=== PATIENT | male | born 1955 | race American Indian/Alaskan Native ===

== ENCOUNTER 2018-05-12 13:32 | Inpatient (IN) | payer MEDICARE ==
[2018-05-12] MEDS ORDERED: NACL 0.9% 1000 ML 1,000 ML ONE (14:04)
[2018-05-12] MEDS ORDERED: NACL 0.9% 1000 ML 1,000 ML IV ONE ×2 (14:07→15:05)
--- NOTE | 2018-05-12 14:13 | Emergency Department Report ---
ED General Adult HPI - General Chief complaint: Hyperglycemia Stated complaint: HYPERGLYCEMIA Time Seen by Provider: 05/12/18 13:53 Source: patient, family, EMS Mode of arrival: Stretcher Limitations: No Limitations - History of Present Illness Initial comments: 62-year-old male with history of diabetes, noncompliant with insulin, presents to ED with elevated glucose. He reports nausea and vomiting, increased thirst over the last 3 days. Accucheck reads HIGH [facility] -[facility] days([facility] (3) Severity scale (0 -10): 0 Improves with: none Worsens with: none Associated Symptoms: nausea/vomiting Treatments Prior to Arrival: none - Related Data Previous Rx's Medication Instructions Recorded Last Taken Type Famotidine [Pepcid] 20 mg PO BID #30 tablet 07/01/15 Unknown Rx Folic Acid 1 tab PO QDAY #30 tab 07/01/15 Unknown Rx Pot Phosphate/Na Phosphate 1 each PO BID #20 powd.pack 07/01/15 Unknown Rx [Phos-Nak] Thiamine [Vitamin B-1] 100 mg PO QDAY #30 tablet 07/01/15 Unknown Rx oxyCODONE /ACETAMINOPHEN [Percocet 1 tab PO Q6HR PRN #20 tablet 07/01/15 Unknown Rx 5/325] Allergies Allergy/AdvReac Type Severity Reaction Status Date / Time No Known Allergies Allergy Unverified 06/27/15 12:58 ED Review of Systems ROS: Stated complaint: HYPERGLYCEMIA Other details as noted in HPI Comment: All other systems reviewed and negative Constitutional: denies: chills, fever Respiratory: denies: cough Endocrine: increased thirst, increased urine Gastrointestinal: nausea, vomiting. denies: abdominal pain, diarrhea ED Past Medical Hx - Past Medical History Hx Hypertension: Yes Hx CVA: Yes Hx Heart Attack/AMI: Yes Hx Diabetes: Yes - Surgical History Additional Surgical History: RIGHT HIP REPLACEMENT X 3 - Social History Smoking Status: Current Every Day Smoker Substance Use Type: Alcohol - Medications Home Medications: Home Medications Medication Instructions Recorded Confirmed Last Taken Type Famotidine [Pepcid] 20 mg PO BID #30 tablet 07/01/15 Unknown Rx Folic Acid 1 tab PO QDAY #30 tab 07/01/15 Unknown Rx Pot Phosphate/Na Phosphate 1 each PO BID #20 powd.pack 07/01/15 Unknown Rx [Phos-Nak] Thiamine [Vitamin B-1] 100 mg PO QDAY #30 tablet 07/01/15 Unknown Rx oxyCODONE /ACETAMINOPHEN [Percocet 1 tab PO Q6HR PRN #20 tablet 07/01/15 Unknown Rx 5/325] ED Physical Exam - General Limitations: No Limitations General appearance: alert, in no apparent distress - Head Head exam: Present: atraumatic, normocephalic - Eye Eye exam: Present: normal appearance - ENT ENT exam: Present: mucous membranes dry - Neck Neck exam: Present: normal inspection - Respiratory Respiratory exam: Present: normal lung sounds bilaterally. Absent: respiratory distress - Cardiovascular Cardiovascular Exam: Present: regular rate, normal rhythm - GI/Abdominal GI/Abdominal exam: Present: soft. Absent: distended, tenderness - Extremities Exam Extremities exam: Present: normal inspection - Neurological Exam Neurological exam: Present: alert, oriented X3 - Psychiatric Psychiatric exam: Present: normal affect, normal mood - Skin Skin exam: Present: warm, dry, intact, normal color. Absent: rash ED Course Vital Signs 05/12/18 05/12/18 05/12/18 13:45 15:00 15:11 Temperature 98.3 F Pulse Rate 73 70 Respiratory 24 20 24 Rate Blood Pressure 130/75 131/57 [Right] O2 Sat by Pulse 99 99 Oximetry ED Medical Decision Making - Lab Data Result diagrams: 05/12/18 14:25 05/12/18 15:49 - Medical Decision Making 62-year-old male presents to ED and DKA. Patient noncompliant with insulin. Glucose resulted at 677, with bicarbonate of 12, anion gap of 38, in moderate serum ketones. Patient is started on an insulin drip. Spoke with hospitalist, Dr. Thomas, for admission. - Differential Diagnosis DKA, hyperglycemia Critical Care Time: Yes Critical care time in (mins) excluding proc time.: 35 Critical care attestation.: If time is entered above; I have spent that time in minutes in the direct care of this critically ill patient, excluding procedure time. Critical Care Time: 35 minutes ED Disposition Clinical Impression: DKA (diabetic ketoacidosis) Qualifiers: Diabetes mellitus type: type 1 Disposition: OP ADMIT IP TO THIS HOSP Is pt being admited?: Yes Condition: Critical Time of Disposition: 15:14
[2018-05-12 14:47] LABS: Basophils % (Auto) 0.1 % (0.0-1.8); Hematocrit 31.2 % (35.5-45.6); Hemoglobin 10.2 gm/dl (11.8-15.2); Lymphocytes # (Auto) 0.8 K/mm3 (1.2-5.4); Lymphocytes % (Auto) 7.8 % (13.4-35.0); Mean Corpuscular HGB Conc 33 % (32-34); Mean Corpuscular Volume 85 fl (84-94); Monocytes # (Auto) 0.6 K/mm3 (0.0-0.8); Monocytes % (Auto) 5.3 % (0.0-7.3); Platelet Count 354 K/mm3 (140-440); Red Blood Count 3.67 M/mm3 (3.65-5.03); Red Cell Distribution Width 18.3 % (13.2-15.2)
[2018-05-12 15:00] LABS: Calcium 8.1 mg/dL (8.4-10.2)
[2018-05-12] MEDS ORDERED: HumuLIN R IV ONE (15:05)
[2018-05-12] MEDS ORDERED: D50W (25GM) Syringe IV PRN ×2 (15:12→15:48)
--- NOTE | 2018-05-12 15:36 | History and Physical Report ---
History of Present Illness Chief complaint: High blood sugar History of present illness: 62 YO Male with DM, HTN, CVA, [place], Noncompliance, ETOH Dependence, Nicotine Dependence presents to ED for evaluation. Pt is confused at time of exam and unable to provide history. Pt history is taken from ED staff and medical record. As per staff, the patient has experienced elevated serum glucose levels over the past 1 week, as well as nausea, multiple episodes of vomiting, vomiting, increased thirst, and increased confusion with worsening symptoms over the last 3 days. EMS notified and upon arrival the patient was found to be in distress. Pt transported to [facility]. Pt seen and evaluated in ED and found to have DKA, Acidosis, ARF, Encephalopathy, and Volume depletion. Pt admitted to ICU and initiated on DKA protocol. No further history obtainable. Past History Past Medical History: acute [place], diabetes, hypertension, stroke Past Surgical History: total hip replacement Social history: smoking, alcohol abuse Family history: diabetes, hypertension Medications and Allergies Allergies Allergy/AdvReac Type Severity Reaction Status Date / Time No Known Allergies Allergy Unverified 06/27/15 12:58 Home Medications Medication Instructions Recorded Confirmed Last Taken Type Famotidine [Pepcid] 20 mg PO BID #30 tablet 07/01/15 Unknown Rx Folic Acid 1 tab PO QDAY #30 tab 07/01/15 Unknown Rx Pot Phosphate/Na Phosphate 1 each PO BID #20 powd.pack 07/01/15 Unknown Rx [Phos-Nak] Thiamine [Vitamin B-1] 100 mg PO QDAY #30 tablet 07/01/15 Unknown Rx oxyCODONE /ACETAMINOPHEN [Percocet 1 tab PO Q6HR PRN #20 tablet 07/01/15 Unknown Rx 5/325] Active Meds: Active Medications Dextrose (D50w (25gm) Syringe) 0 ml IV PRN PRN PRN Reason: Hypoglycemia Sodium Chloride (Nacl 0.9% 1000 Ml) 1,000 mls @ 999 mls/hr IV BOLUS ONE Stop: 05/12/18 16:05 Potassium Chloride/Dextrose/Sod Cl (D5w/0.45% Nacl/Kcl 20 Meq) 20 meq in 1,000 mls @ 125 mls/hr IV DIRECT JOHANA Insulin Human Regular 100 (units/ Sodium Chloride) 100 mls @ 7 mls/hr IV TITR JOHANA; Protocol Review of Systems ROS unobtainable: due to mental status Exam - Constitutional Vitals: Temp Pulse Resp BP Pulse Ox 98.3 F 73 24 130/75 99 05/12/18 13:45 05/12/18 13:45 05/12/18 15:11 05/12/18 13:45 05/12/18 13:45 General appearance: Present: severe distress, cachectic, disheveled - EENT Eyes: Present: miosis ENT: other (Dry oral mucosa) - Neck Neck: Present: supple, normal ROM - Respiratory Respiratory effort: normal Respiratory: bilateral: CTA - Cardiovascular Rhythm: other (tachycardia) Heart Sounds: Present: S1 & S2. Absent: rub, click - Extremities Extremities: pulses symmetrical, No edema Peripheral Pulses: within normal limits - Abdominal General gastrointestinal: Present: soft, non-tender, non-distended, normal bowel sounds Male genitourinary: Present: normal - Integumentary Integumentary: Present: clear, dry, clammy, decreased turgor - Musculoskeletal Musculoskeletal: generalized weakness - Psychiatric Psychiatric: no appropriate mood/affect, no intact judgment & insight, no memory intact - Neurologic Neurologic: no focal deficits, moves all extremities, no gait normal Results - Labs CBC & Chem 7: 05/12/18 14:25 05/12/18 15:49 Labs: Abnormal lab results 05/12/18 05/12/18 Range/Units 14:25 14:25 Hgb 10.2 L (11.8-15.2) gm/dl Hct 31.2 L (35.5-45.6) % RDW 18.3 H (13.2-15.2) % Lymph % (Auto) 7.8 L (13.4-35.0) % Lymph # 0.8 L (1.2-5.4) K/mm3 Seg Neutrophils % 86.8 H (40.0-70.0) % Seg Neutrophils # 9.3 H (1.8-7.7) K/mm3 Carbon Dioxide 12 L (22-30) mmol/L BUN 48 H (9-20) mg/dL Creatinine 1.8 H (0.8-1.5) mg/dL Glucose 677 H* (75-100) mg/dL Calcium 8.1 L (8.4-10.2) mg/dL Assessment and Plan - Patient Problems (1) DKA (diabetic ketoacidosis) Current Visit: Yes Status: Acute Qualifiers: Diabetes mellitus type: type 1 Plan to address problem: Admit to ICU, DKA Protocol: IVF resuscitation therapy, monitor uop q shift, serial bmp, insulin drip, monitor anion gap, IV bicarbonate therapy, The high probability of a clinically significant, sudden or life threatening de terioration of the [Endocrine, neuro, respiratory,renal] system(s) required my full and direct attention, intervention and personal management. The aggregate critical care time was [65] minutes. This time is in addition to time spent performing reported procedures but includes the following: [x] Data Review and interpretation [x] Patient assessment and monitoring of vital signs [x] Documentation [x] Medication orders and management (2) Encephalopathy Current Visit: Yes Status: Acute Plan to address problem: CT head, neuro check, neuro checks, treat dka, (3) ARF (acute renal failure) with tubular necrosis Current Visit: Yes Status: Acute Plan to address problem: IVF resuscitation therapy, monitor uop q shift, serial bmp, monitor serum creatnine, (4) Alcohol dependence Current Visit: Yes Status: Acute Qualifiers: Complication of substance-induced condition: with unspecified complication Plan to address problem: CIWA protocol, Blood alcohol, Banana bag, thiamine, folic acid, multivitamin, (5) Acidosis Current Visit: Yes Status: Acute Plan to address problem: IVF resuscitation therapy, treat DKA, monitor uop q shift, IV bicarbonate therapy, serial bmp (6) Hypernatremia Current Visit: Yes Status: Acute Plan to address problem: IVF resuscitation therapy, monitor uop q shift, serial bmp, (7) DVT prophylaxis Current Visit: Yes Status: Acute Plan to address problem: SCD to BLE while in bed
[2018-05-12] MEDS ORDERED: PROVENTIL IH PRN (15:44)
[2018-05-12] MEDS ORDERED: SODIUM CHLORIDE FLUSH SYRINGE 10 ML IV PRN (15:44)
[2018-05-12] MEDS ORDERED: PERCOCET 5/325 PO PRN (15:46)
[2018-05-12 15:49] LABS: Bilirubin,Urine NEG (Negative); Blood,Urine SM (Negative); Color,Urine Straw (Yellow); Mucus,Urine FEW /HPF; Protein,Urine <15 mg/dL mg/dL (Negative); RBC,Urine < 1.0 /HPF (0.0-6.0); Urobilinogen,Urine < 2.0 mg/dL (<2.0); WBC,Urine < 1.0 /HPF (0.0-6.0)
[2018-05-12] MEDS ORDERED: HumuLIN R 100 UNITS in NACL 0.9% 99 ML IV SCH (16:00)
[2018-05-12 16:01] LABS: Calcium 8.2 mg/dL (8.4-10.2)
[2018-05-12] MEDS: HumuLIN R 100 UNITS in NACL 0.9% 99 ML IV SCH (16:03)
[2018-05-12 16:19] LABS: Calcium 7.8 mg/dL (8.4-10.2)
[2018-05-12 17:46] LABS: Alanine Aminotransferase 5 units/L (7-56)
[2018-05-12 17:47] LABS: Bilirubin,Direct < 0.2 mg/dL (0-0.2)
[2018-05-12] MEDS ORDERED: PEPCID ONE (18:45)
[2018-05-12] MEDS: PEPCID PO SCH (19:20)
[2018-05-12] MEDS ORDERED: SODIUM BICARBONATE PEDIATRIC ONE (19:20)
[2018-05-12] MEDS ORDERED: SODIUM BICARBONATE IV ONE (20:00)
[2018-05-12] MEDS ORDERED: PEPCID PO SCH (22:00)
[2018-05-12] MEDS: D5W/0.45% NACL/KCL 20 MEQ 20 MEQ/1,000 ML BAG IV SCH (22:00)
[2018-05-12] MEDS ORDERED: PHOS-NAK PO SCH (22:00)
[2018-05-12 22:23] LABS: Calcium 8.2 mg/dL (8.4-10.2)
[2018-05-12] MEDS: SODIUM CHLORIDE FLUSH SYRINGE 10 ML IV SCH (22:29)
[2018-05-12 23:13] LABS: BUN/Creatinine Ratio 30; Blood Urea Nitrogen 42 mg/dL (9-20); Calcium 8.4 mg/dL (8.4-10.2); Hemolysis Index 14
[2018-05-13] MEDS: HABITROL TD SCH ×2 (01:14→09:06)
[2018-05-13] MEDS: D5W/0.45% NACL/KCL 20 MEQ 20 MEQ/1,000 ML BAG IV SCH ×2 (04:27→11:56)
[2018-05-13] MEDS: HumuLIN R 100 UNITS in NACL 0.9% 99 ML IV SCH (06:13)
[2018-05-13 07:39] LABS: BUN/Creatinine Ratio 34; Blood Urea Nitrogen 34 mg/dL (9-20); Calcium 8.2 mg/dL (8.4-10.2); Hemolysis Index 11
[2018-05-13] MEDS ORDERED: D50W (25GM) Syringe IV PRN (08:39)
[2018-05-13] MEDS ORDERED: K-DUR PO ONE (09:00)
[2018-05-13] MEDS: FOLVITE PO SCH (09:03)
[2018-05-13] MEDS: VITAMIN B-1 PO SCH (09:03)
[2018-05-13] MEDS: PEPCID PO SCH (09:04)
[2018-05-13] MEDS: SODIUM CHLORIDE FLUSH SYRINGE 10 ML IV SCH ×2 (09:05→21:58)
[2018-05-13] MEDS ORDERED: LANTUS SUB-Q ONE (09:30)
[2018-05-13] MEDS ORDERED: NON-FORMULARY (Folic Acid [Folic Acid] 1 TAB) PO SCH (10:00)
--- NOTE | 2018-05-13 11:10 | Consultation ---
History of Present Illness - Reason for Consult Consult date: 05/13/18 DKA Requesting physician: PETER LEYVA - History of Present Illness 62 y/o male admitted with DKA and AMS. Patient has been admitted before with DKA diagnosis. Last time in ICU was for this and I saw him then. Still somewhat altered/agitated but has been given narcotics so is now asleep. Anion Gap has closed and has been given long acting insulin. Past History Past Medical History: acute [place], diabetes, hypertension, stroke Past Surgical History: total hip replacement Social history: smoking, alcohol abuse Family history: diabetes, hypertension Medications and Allergies Allergies Allergy/AdvReac Type Severity Reaction Status Date / Time No Known Allergies Allergy Unverified 06/27/15 12:58 Home Medications Medication Instructions Recorded Confirmed Last Taken Type Famotidine [Pepcid] 20 mg PO BID #30 tablet 07/01/15 Unknown Rx Folic Acid 1 tab PO QDAY #30 tab 07/01/15 Unknown Rx Pot Phosphate/Na Phosphate 1 each PO BID #20 powd.pack 07/01/15 Unknown Rx [Phos-Nak] Thiamine [Vitamin B-1] 100 mg PO QDAY #30 tablet 07/01/15 Unknown Rx oxyCODONE /ACETAMINOPHEN [Percocet 1 tab PO Q6HR PRN #20 tablet 07/01/15 Unknown Rx 5/325] Active Meds: Active Medications Albuterol (Proventil) 2.5 mg IH Q3HRT PRN PRN Reason: Shortness Of Breath Dextrose (D50w (25gm) Syringe) 0 ml IV PRN PRN PRN Reason: Hypoglycemia Famotidine (Pepcid) 20 mg PO QDAY [facility] Last Admin: 05/13/18 09:04 Dose: 20 mg Documented by: Folic Acid (Folvite) 1 mg PO DAILY JOHANA Last Admin: 05/13/18 09:03 Dose: 1 mg Documented by: Potassium Chloride/Dextrose/Sod Cl (D5w/0.45% Nacl/Kcl 20 Meq) 20 meq in 1,000 mls @ 125 mls/hr IV DIRECT JOHANA Last Admin: 05/13/18 04:27 Dose: 125 mls/hr Documented by: Insulin Glargine (Lantus) 18 units SUB-Q QHS JOHANA Insulin Human Lispro (Humalog) 0 unit SUB-Q ACHS JOHANA; Protocol Nicotine (Habitrol) 21 mg TD QDAY JOHANA Last Admin: 05/13/18 09:06 Dose: 21 mg Documented by: Oxycodone/Acetaminophen (Percocet 5/325) 1 tab PO Q6HR PRN PRN Reason: Pain Last Admin: 05/13/18 09:05 Dose: 1 tab Documented by: Sodium Chloride (Sodium Chloride Flush Syringe 10 Ml) 10 ml IV BID [facility] Last Admin: 05/13/18 09:05 Dose: 10 ml Documented by: Sodium Chloride (Sodium Chloride Flush Syringe 10 Ml) 10 ml IV PRN PRN PRN Reason: LINE FLUSH Thiamine HCl (Vitamin B-1) 100 mg PO QDAY [facility] Last Admin: 05/13/18 09:03 Dose: 100 mg Documented by: Review of Systems ROS unobtainable: due to mental status Exam - Constitutional Vitals: Temp Pulse Resp BP Pulse Ox 98.4 F 66 13 134/80 99 05/13/18 03:26 05/13/18 04:41 05/13/18 08:00 05/13/18 04:41 05/13/18 08:00 General appearance: Present: no acute distress, cachectic - EENT Eyes: Present: PERRL, EOM intact ENT: hearing intact - Neck Neck: Present: supple - Respiratory Respiratory effort: normal Respiratory: bilateral: CTA - Cardiovascular Rhythm: regular Results - Labs CBC & Chem 7: 05/12/18 14:25 05/13/18 07:00 Labs: Abnormal lab results 05/12/18 05/12/18 05/12/18 Range/Units 14:25 14:25 15:17 Hgb 10.2 L (11.8-15.2) gm/dl Hct 31.2 L (35.5-45.6) % RDW 18.3 H (13.2-15.2) % Lymph % (Auto) 7.8 L (13.4-35.0) % Lymph # 0.8 L (1.2-5.4) K/mm3 Seg Neutrophils % 86.8 H (40.0-70.0) % Seg Neutrophils # 9.3 H (1.8-7.7) K/mm3 Sodium (137-145) mmol/L Potassium (3.6-5.0) mmol/L Chloride (98-107) mmol/L Carbon Dioxide 12 L (22-30) mmol/L BUN 48 H (9-20) mg/dL Creatinine 1.8 H (0.8-1.5) mg/dL Glucose 677 H* (75-100) mg/dL Calcium 8.1 L (8.4-10.2) mg/dL Phosphorus 4.90 H (2.5-4.5) mg/dL Magnesium 2.50 H (1.7-2.3) mg/dL ALT (7-56) units/L Albumin (3.9-5) g/dL 05/12/18 05/12/18 05/12/18 Range/Units 15:17 15:49 17:09 Hgb (11.8-15.2) gm/dl Hct (35.5-45.6) % RDW (13.2-15.2) % Lymph % (Auto) (13.4-35.0) % Lymph # (1.2-5.4) K/mm3 Seg Neutrophils % (40.0-70.0) % Seg Neutrophils # (1.8-7.7) K/mm3 Sodium 148 H 148 H (137-145) mmol/L Potassium (3.6-5.0) mmol/L Chloride 96.7 L (98-107) mmol/L Carbon Dioxide 11 L 11 L (22-30) mmol/L BUN 49 H 46 H (9-20) mg/dL Creatinine 1.9 H 1.8 H (0.8-1.5) mg/dL Glucose 672 H* 644 H* (75-100) mg/dL Calcium 8.2 L 7.8 L (8.4-10.2) mg/dL Phosphorus 4.80 H (2.5-4.5) mg/dL Magnesium 2.40 H (1.7-2.3) mg/dL ALT 5 L (7-56) units/L Albumin 3.0 L (3.9-5) g/dL 05/12/18 05/12/18 05/13/18 Range/Units 21:47 22:51 07:00 Hgb (11.8-15.2) gm/dl Hct (35.5-45.6) % RDW (13.2-15.2) % Lymph % (Auto) (13.4-35.0) % Lymph # (1.2-5.4) K/mm3 Seg Neutrophils % (40.0-70.0) % Seg Neutrophils # (1.8-7.7) K/mm3 Sodium 153 H 154 H 161 H* (137-145) mmol/L Potassium 3.3 L 2.9 L* 2.9 L* (3.6-5.0) mmol/L Chloride 110.3 H 111.7 H 118.8 H (98-107) mmol/L Carbon Dioxide (22-30) mmol/L BUN 43 H 42 H 34 H (9-20) mg/dL Creatinine (0.8-1.5) mg/dL Glucose 363 H 322 H 128 H (75-100) mg/dL Calcium 8.2 L 8.2 L (8.4-10.2) mg/dL Phosphorus (2.5-4.5) mg/dL Magnesium (1.7-2.3) mg/dL ALT (7-56) units/L Albumin (3.9-5) g/dL Assessment and Plan 62 y/o male with diabetic ketoacidosis, hypernatremia and hypokalemia. 1. Anion Gap has closed. Agree with stopping Insulin gtt and starting long acting insulin as well as feeding patient 2. May need to consider rechecking chemistry to evaluate Na. Patient was on normal saline on admission but now switched to D5. Labs may have been drawn down stream from infusion. If real, may be worsening mental state and should be worked up. Will defer to primary team 3. Agree with replacing K 4. Transfer orders placed by IMS, will sign off once out of unit. CCT 31 minutes.
[2018-05-13 11:15] LABS: BUN/Creatinine Ratio 33; Blood Urea Nitrogen 33 mg/dL (9-20); Calcium 8.1 mg/dL (8.4-10.2); Hemolysis Index 13
[2018-05-13] MEDS ORDERED: ATIVAN PO PRN ×2 (11:50)
[2018-05-13] MEDS: HumaLOG SUB-Q SCH ×3 (11:58→22:54)
[2018-05-13] MEDS ORDERED: NACL 0.9% 1000 ML 1,000 ML IV SCH (12:00)
[2018-05-13] MEDS ORDERED: K-DUR PO NR (14:23)
--- NOTE | 2018-05-13 14:23 | Progress Note ---
Assessment and Plan Assessment and plan: DKA - Patient was treated according to DK protocol, gap closed Diabetes mellitus with hyperglycemia - Sliding-scale insulin, started his home dose of insulin, ADA diet, Accu-Chek - We'll monitor and adjust insulin as needed Hypernatremia - Patient is on D5 half-normal - I ordered bolus of 2 L normal saline - Nephrology consulted Hypokalemia - Gave him 40 meq of potassium and 20 units in the bag, despite that it is still low - We will give additional 40 mEq - Check BMP, and magnesium History of alcohol abuse - Patient denied but per chart review as alcoholic - On [facility] protocol DVT prophylaxis SCDs Disposition - Transfer him to medical floor with remote telemetry History Interval history: Patient was seen and evaluated this morning, patient was alert and oriented. Patient is on restraints. Patient is complaining thirst and asking for water. Hospitalist Physical - Physical exam Narrative exam: Not in cardiopulmonary distress. The patient appeared well nourished and normally developed. Vital signs as documented. Head exam is unremarkable. No scleral icterus . Neck is without jugular venous distension, thyromegaly, or carotid bruits. Lungs are clear to auscultation. Cardiac exam reveals regular rate and Rhythm. First and second heart sounds normal. No murmurs, rubs or gallops. Abdominal exam reveals normal bowel sounds, no masses, no organomegaly and no aortic enlargement. Extremities are nonedematous and both femoral and pedal pulses are normal. [employer]: Alert and oriented 3. No focal weakness. - Constitutional Vitals: Temp Pulse Resp BP Pulse Ox 98.4 F 66 18 134/80 98 05/13/18 03:26 05/13/18 04:41 05/13/18 12:00 05/13/18 04:41 05/13/18 12:00 General appearance: Present: no acute distress, cachectic Results - Labs CBC & Chem 7: 05/12/18 14:25 05/13/18 10:37 Labs: Laboratory Last Values WBC 10.7 K/mm3 (4.5-11.0) 05/12/18 14:25 RBC 3.67 M/mm3 (3.65-5.03) 05/12/18 14:25 Hgb 10.2 gm/dl (11.8-15.2) L 05/12/18 14:25 Hct 31.2 % (35.5-45.6) L 05/12/18 14:25 MCV 85 fl (84-94) 05/12/18 14:25 MCH 28 pg (28-32) 05/12/18 14:25 MCHC 33 % (32-34) 05/12/18 14:25 RDW 18.3 % (13.2-15.2) H 05/12/18 14:25 Plt Count 354 K/mm3 (140-440) 05/12/18 14:25 Lymph % (Auto) 7.8 % (13.4-35.0) L 05/12/18 14:25 [place] % (Auto) 5.3 % (0.0-7.3) 05/12/18 14:25 Eos % (Auto) 0.0 % (0.0-4.3) 05/12/18 14:25 Baso % (Auto) 0.1 % (0.0-1.8) 05/12/18 14:25 Lymph # 0.8 K/mm3 (1.2-5.4) L 05/12/18 14:25 [place] # 0.6 K/mm3 (0.0-0.8) 05/12/18 14:25 Eos # 0.0 K/mm3 (0.0-0.4) 05/12/18 14:25 Baso # 0.0 K/mm3 (0.0-0.1) 05/12/18 14:25 Seg Neutrophils % 86.8 % (40.0-70.0) H 05/12/18 14:25 Seg Neutrophils # 9.3 K/mm3 (1.8-7.7) H 05/12/18 14:25 Sodium 164 mmol/L (137-145) H* 05/13/18 10:37 Potassium 3.3 mmol/L (3.6-5.0) L 05/13/18 10:37 Chloride 113.0 mmol/L (98-107) H 05/13/18 10:37 Carbon Dioxide 27 mmol/L (22-30) 05/13/18 10:37 Anion Gap 25 mmol/L 05/13/18 10:37 BUN 33 mg/dL (9-20) H 05/13/18 10:37 Creatinine 1.0 mg/dL (0.8-1.5) 05/13/18 10:37 Estimated GFR > 60 ml/min 05/13/18 10:37 BUN/Creatinine Ratio 33 % 05/13/18 10:37 Glucose 202 mg/dL (75-100) H 05/13/18 10:37 Ketones Quantitative Moderate (Negative) 05/12/18 14:25 Calcium 8.1 mg/dL (8.4-10.2) L 05/13/18 10:37 Phosphorus 4.80 mg/dL (2.5-4.5) H 05/12/18 15:49 Magnesium 2.40 mg/dL (1.7-2.3) H 05/12/18 15:49 Total Bilirubin 0.20 mg/dL (0.1-1.2) 05/12/18 17:09 Direct Bilirubin < 0.2 mg/dL (0-0.2) 05/12/18 17:09 Indirect Bilirubin 0.0 mg/dL 05/12/18 17:09 AST 12 units/L (5-40) 05/12/18 17:09 ALT 5 units/L (7-56) L 05/12/18 17:09 Alkaline Phosphatase 101 units/L (35-129) 05/12/18 17:09 Total Protein 6.6 g/dL (6.3-8.2) 05/12/18 17:09 Albumin 3.0 g/dL (3.9-5) L 05/12/18 17:09 Albumin/Globulin Ratio 0.8 % 05/12/18 17:09 Urine Color Straw (Yellow) 05/12/18 15:35 Urine Turbidity Clear (Clear) 05/12/18 15:35 Urine pH 5.0 (5.0-7.0) 05/12/18 15:35 Ur Specific [place] 1.020 (1.003-1.030) 05/12/18 15:35 Urine Protein <15 mg/dl mg/dL (Negative) 05/12/18 15:35 Urine Glucose (UA) >=500 mg/dL (Negative) 05/12/18 15:35 Urine Ketones 80 mg/dL (Negative) 05/12/18 15:35 Urine Blood Sm (Negative) 05/12/18 15:35 Urine Nitrite Neg (Negative) 05/12/18 15:35 Urine Bilirubin Neg (Negative) 05/12/18 15:35 Urine Urobilinogen < 2.0 mg/dL (<2.0) 05/12/18 15:35 Ur Leukocyte Esterase Neg (Negative) 05/12/18 15:35 Urine WBC (Auto) < 1.0 /HPF (0.0-6.0) 05/12/18 15:35 Urine RBC (Auto) < 1.0 /HPF (0.0-6.0) 05/12/18 15:35 Urine Mucus Few /HPF 05/12/18 15:35 Plasma/Serum Alcohol < 0.01 % (0-0.07) 05/12/18 17:09
--- NOTE | 2018-05-13 14:45 | Consultation ---
History of Present Illness - Reason for Consult Consult date: 05/13/18 hypernatremia, hypokalemia - History of Present Illness The patient is a 62 YO Male with history significant for DM, HTN, CVA, CAD s/p UT, ETOH Dependence, Nicotine Dependence and Medical non-compliance who presented to ED for evaluation of AMS. Pt was a very poor historian and unable to get history from him. The patient has experienced elevated serum glucose levels over the past week, as well as nausea, vomiting, increased thirst, and confusion. Pt seen and evaluated in ED and found to have DKA with blood sugar 6 77, Acidosis, KEELEY with creatinine 1.8, Encephalopathy, and Volume depletion. Pt admitted to ICU for further treatment. Creatinine level has gotten better. Sodium level went upto 164 today. Nephrology was consulted for further evaluation. Past History Past Medical History: acute UT, diabetes, hypertension, stroke Past Surgical History: total hip replacement Social history: smoking, alcohol abuse Family history: diabetes, hypertension Medications and Allergies Allergies Allergy/AdvReac Type Severity Reaction Status Date / Time No Known Allergies Allergy Unverified 06/27/15 12:58 Home Medications Medication Instructions Recorded Confirmed Last Taken Type Famotidine [Pepcid] 20 mg PO BID #30 tablet 07/01/15 Unknown Rx Folic Acid 1 tab PO QDAY #30 tab 07/01/15 Unknown Rx Pot Phosphate/Na Phosphate 1 each PO BID #20 powd.pack 07/01/15 Unknown Rx [Phos-Nak] Thiamine [Vitamin B-1] 100 mg PO QDAY #30 tablet 07/01/15 Unknown Rx oxyCODONE /ACETAMINOPHEN [Percocet 1 tab PO Q6HR PRN #20 tablet 07/01/15 Unknown Rx 5/325] Active Meds: Active Medications Albuterol (Proventil) 2.5 mg IH Q3HRT PRN PRN Reason: Shortness Of Breath Dextrose (D50w (25gm) Syringe) 0 ml IV PRN PRN PRN Reason: Hypoglycemia Enoxaparin Sodium (Lovenox) 40 mg SUB-Q QDAY@2200 J[facility] Famotidine (Pepcid) 20 mg PO QDAY [facility] Last Admin: 05/13/18 09:04 Dose: 20 mg Documented by: Folic Acid (Folvite) 1 mg PO DAILY [facility] Last Admin: 05/13/18 09:03 Dose: 1 mg Documented by: Potassium Chloride/Dextrose/Sod Cl (D5w/0.45% Nacl/Kcl 20 Meq) 20 meq in 1,000 mls @ 125 mls/hr IV DIRECT [facility] Last Admin: 05/13/18 11:56 Dose: 125 mls/hr Documented by: Sodium Chloride (Nacl 0.9% 1000 Ml) 1,000 mls @ 0 mls/hr IV ONCE JOHANA Stop: 05/14/18 12:01 Insulin Glargine (Lantus) 18 units SUB-Q QHS JOHANA Insulin Human Lispro (Humalog) 0 unit SUB-Q ACHS JOHANA; Protocol Last Admin: 05/13/18 11:58 Dose: 6 unit Documented by: Lorazepam (Ativan) 2 mg PO Q1HR PRN PRN Reason: CIWA-Ar 8-15 Lorazepam (Ativan) 4 mg PO Q1HR PRN PRN Reason: CIWA-Ar 16-25 Nicotine (Habitrol) 21 mg TD QDAY [facility] Last Admin: 05/13/18 09:06 Dose: 21 mg Documented by: Oxycodone/Acetaminophen (Percocet 5/325) 1 tab PO Q6HR PRN PRN Reason: Pain Last Admin: 05/13/18 09:05 Dose: 1 tab Documented by: Potassium Chloride (K-Dur) 40 meq PO ONCE NR Stop: 05/13/18 23:59 Sodium Chloride (Sodium Chloride Flush Syringe 10 Ml) 10 ml IV BID [facility] Last Admin: 05/13/18 09:05 Dose: 10 ml Documented by: Sodium Chloride (Sodium Chloride Flush Syringe 10 Ml) 10 ml IV PRN PRN PRN Reason: LINE FLUSH Thiamine HCl (Vitamin B-1) 100 mg PO QDAY [facility] Last Admin: 05/13/18 09:03 Dose: 100 mg Documented by: Review of Systems ROS unobtainable: due to mental status (patient is a very poor historian and some confusion noted) Exam - Vital Signs Vital signs: Vital Signs Temp Pulse Resp BP Pulse Ox 98.3 F 73 24 130/75 99 05/12/18 13:45 05/12/18 13:45 05/12/18 13:45 05/12/18 13:45 05/12/18 13:45 - General Appearance General appearance: well-developed, appears stated age, other (not in distress) EENT: ATNC, PERRL, mucous membranes moist, hearing intact, vision intact Neck: Present: neck supple, trachea midline Respiratory: Clear to Ascultation Heart: regular, S1S2, no murmurs Gastrointestinal: Present: normoactive bowel sounds. Absent: tenderness, distended Integumentary: no rash, warm and dry Neurologic: no focal deficit, no asterixis, other (some what slow in answering the questions) Musculoskeletal: Present: other (no edema) Psychiatric: cooperative Results - Lab Results 05/12/18 14:25 05/13/18 14:17 Most recent lab results Calcium 8.1 mg/dL (8.4-10.2) L 05/13/18 10:37 Phosphorus 4.80 mg/dL (2.5-4.5) H 05/12/18 15:49 Magnesium 2.40 mg/dL (1.7-2.3) H 05/12/18 15:49 Assessment and Plan 1. Hypernatremia: Secondary to volume depletion / dehydration. Change IV fluids to D5W with KCl. Monitor Sodium level. Repeat sodium level is pending. 2. FEN: Replete K. 3. DKA: Improved. 4. H/o Etoh abuse. 5. HTN.
[2018-05-13 14:57] LABS: BUN/Creatinine Ratio 30; Blood Urea Nitrogen 30 mg/dL (9-20); Hemolysis Index 21
--- NOTE | 2018-05-13 15:19 | XRay Report ---
AP CHEST: HISTORY: Altered mental status AP view of the chest demonstrates a normal mediastinal and cardiac contour with clear lungs and normal bony and soft tissue structures. IMPRESSION: No acute cardiopulmonary process is identified.
[2018-05-13 17:09] LABS: BUN/Creatinine Ratio 30; Blood Urea Nitrogen 27 mg/dL (9-20); Hemolysis Index 17
[2018-05-13] MEDS: KCL 40 MEQ in D5W 1,000 ML IV SCH (18:55)
[2018-05-13] MEDS ORDERED: LOVENOX SUB-Q SCH (22:00)
[2018-05-13] MEDS ORDERED: LANTUS SUB-Q SCH (22:00)
[2018-05-14 05:39] LABS: Basophils # (Auto) 0.1 K/mm3 (0.0-0.1); Basophils % (Auto) 0.8 % (0.0-1.8); Eosinophils # (Auto) 0.1 K/mm3 (0.0-0.4); Eosinophils % (Auto) 0.9 % (0.0-4.3); Hematocrit 29.9 % (35.5-45.6); Hemoglobin 10.1 gm/dl (11.8-15.2); Lymphocytes % (Auto) 20.5 % (13.4-35.0); Mean Corpuscular HGB Conc 34 % (32-34); Mean Corpuscular Volume 81 fl (84-94); Monocytes # (Auto) 0.8 K/mm3 (0.0-0.8); Monocytes % (Auto) 8.1 % (0.0-7.3); Platelet Count 311 K/mm3 (140-440); Red Cell Distribution Width 18.1 % (13.2-15.2)
[2018-05-14] MEDS: KCL 40 MEQ in D5W 1,000 ML IV SCH (05:48)
[2018-05-14 06:00] LABS: BUN/Creatinine Ratio 23; Blood Urea Nitrogen 18 mg/dL (9-20); Calcium 7.9 mg/dL (8.4-10.2); Hemolysis Index 19
[2018-05-14] MEDS: HABITROL TD SCH (09:41)
[2018-05-14] MEDS: FOLVITE PO SCH (09:41)
[2018-05-14] MEDS: PEPCID PO SCH (09:41)
[2018-05-14] MEDS: VITAMIN B-1 PO SCH (09:41)
[2018-05-14] MEDS: HumaLOG SUB-Q SCH ×2 (09:42→13:37)
[2018-05-14] MEDS ORDERED: KPHOS 45 MMOL in NACL 0.9% 500 ML 500 ML IV ONE (10:00)
[2018-05-14] MEDS: SODIUM CHLORIDE FLUSH SYRINGE 10 ML IV SCH (10:06)
--- NOTE | 2018-05-14 10:13 | Discharge Summary ---
Providers - Providers Date of Admission: 05/12/18 15:45 Attending physician: ESCOBAR CHIU MD 05/12/18 15:48 Consult to Physician [CONS] Routine Comment: Consulting Provider: QUITA COOPER Physician Instructions: Reason For Exam: DKA 05/13/18 14:25 Consult to Physician [CONS] Routine Comment: Consulting Provider: LUIZ ORELLANA Physician Instructions: Reason For Exam: hypernatremia Primary care physician: COST RECOVERY TECHNICIAN Hospitalization Reason for admission: DKA, medication noncompliance Condition: Stable Hospital course: Patient was admitted to ICU for the management of DKA and electrolyte derangements. patient was treated according to DKA protocol and Gap was closed and patient was transferred to the floor and blood glucose was in target and electrolytes were corrected. patient said he was non complaint with his insulin regimen and was counselled extensively about adherence and discharged home. patient had enough insulin at home. patient was hemodynamically stable at the time of discharge. Disposition: [place]- HOME UNDER HOME [facility] Time spent for discharge: 32 minutes - Discharge Diagnoses (1) Acidosis Status: Acute (2) DKA (diabetic ketoacidosis) Status: Acute Qualifiers: Diabetes mellitus type: type 1 (3) Encephalopathy Status: Acute (4) Hypernatremia Status: Acute (5) Abdominal pain Status: Acute Qualifiers: Abdominal location: upper abdomen (6) Nausea and vomiting Status: Acute Qualifiers: Vomiting type: unspecified Vomiting Intractability: non-intractable Qualified Code(s): R11.2 - Nausea with vomiting, unspecified (7) ARF (acute renal failure) with tubular necrosis Status: Acute Core Measure Documentation - Palliative Care Palliative Care/ Comfort Measures: Not Applicable - Core Measures Any of the following diagnoses?: none Exam - Physical Exam Narrative exam: Not in cardiopulmonary distress. The patient appeared well nourished and normally developed. Vital signs as documented. Head exam is unremarkable. No scleral icterus . Neck is without jugular venous distension, thyromegaly, or carotid bruits. Lungs are clear to auscultation. Cardiac exam reveals regular rate and Rhythm. First and second heart sounds normal. No murmurs, rubs or gallops. Abdominal exam reveals normal bowel sounds, no masses, no organomegaly and no aortic enlargement. Extremities are nonedematous and both femoral and pedal pulses are normal. SENIOR SCRUM MASTER: Alert and oriented 3. No focal weakness. - Constitutional Vitals: Temp Pulse Resp BP Pulse Ox 97.9 F 77 20 99/64 98 05/13/18 22:02 05/13/18 22:02 05/14/18 05:19 05/14/18 05:19 05/13/18 21:26 Plan Activity: no restrictions Weight Bearing Status: Full Weight Bearing Diet: diabetic
--- NOTE | 2018-05-14 10:39 | Progress Note ---
Assessment and Plan 1. Hypernatremia: Secondary to volume depletion / dehydration. Sodium level is better. Monitor Sodium level. Stop D5W. 2. FEN: Replete Phos. 3. DKA: Improved. 4. H/o Etoh abuse. 5. HTN. Subjective Date of service: 05/14/18 Interval history: Patient was seen and examined at the bedside. Objective - Vital Signs Vital signs: Vital Signs - 12hr 05/14/18 05:19 Respiratory 20 Rate Blood Pressure 99/64 - General Appearance General appearance: well-developed, appears stated age, other (not in distress) EENT: ATNC, PERRL, mucous membranes moist, hearing intact Neck: supple Respiratory: Present: Clear to Ascultation Cardiology: regular, S1S2, no murmurs Gastrointestinal: normoactive bowel sounds Integumentary: no rash, warm and dry Neurologic: no focal deficit, no asterixis Musculoskeletal: other (no edema) - Lab 05/14/18 05:19 05/14/18 05:19 Most recent lab results Calcium 7.9 mg/dL (8.4-10.2) L 05/14/18 05:19 Phosphorus 1.00 mg/dL (2.5-4.5) L D 05/14/18 05:19 Magnesium 2.40 mg/dL (1.7-2.3) H 05/12/18 15:49 Medications & Allergies - Medications Allergies/Adverse Reactions: Allergies No Known Allergies Allergy (Unverified 06/27/15 12:58) Home Medications: Home Medications Medication Instructions Recorded Confirmed Last Taken Type Famotidine [Pepcid] 20 mg PO BID #30 tablet 07/01/15 Unknown Rx Folic Acid 1 tab PO QDAY #30 tab 07/01/15 Unknown Rx Pot Phosphate/Na Phosphate 1 each PO BID #20 powd.pack 07/01/15 Unknown Rx [Phos-Nak] Thiamine [Vitamin B-1] 100 mg PO QDAY #30 tablet 07/01/15 Unknown Rx oxyCODONE /ACETAMINOPHEN [Percocet 1 tab PO Q6HR PRN #20 tablet 07/01/15 Unknown Rx 5/325 mg] Insulin Glargine [Lantus VIAL] 18 units SUB-Q QHS units 05/14/18 Unknown Rx Lispro Insulin [Humalog] 0 unit SUB-Q ACHS units 05/14/18 Unknown Rx Nicotine [Habitrol] 21 mg TD QDAY patch 05/14/18 Unknown Rx Active Medications: Generic Name Dose Route Start Last Admin Trade Name Jose PRN Reason Stop Dose Admin Albuterol 2.5 mg 05/12/18 15:44 Proventil IH Q3HRT PRN Shortness Of Breath Dextrose 0 ml 05/12/18 15:48 D50w (25gm) Syringe IV PRN PRN Hypoglycemia Enoxaparin Sodium 40 mg 05/13/18 22:00 05/13/18 21:55 Lovenox SUB-Q 40 mg QDAY@2200 JOHANA Administration Famotidine 20 mg 05/12/18 18:00 05/14/18 09:41 Pepcid PO 20 mg QDAY J[facility] Administration Folic Acid 1 mg 05/13/18 10:00 05/14/18 09:41 Folvite PO 1 mg DAILY [facility] Administration Sodium Chloride 1,000 mls @ 0 mls/hr 05/13/18 12:00 Nacl 0.9% 1000 Ml IV 05/14/18 12:01 ONCE JOHANA As Directed Potassium Chloride 40 meq/ 1,020 mls @ 50 mls/hr 05/13/18 18:30 05/14/18 05:48 Dextrose IV 100 mls/hr DIRECT [facility] Administration Potassium Phosphate 45 mmol/ 515 mls @ 85 mls/hr 05/14/18 10:00 05/14/18 10:22 Sodium Chloride IV 05/14/18 16:03 85 mls/hr ONCE ONE Administration Insulin Glargine 18 units 05/13/18 22:00 05/13/18 22:54 Lantus SUB-Q 18 units QHS JOHANA Administration Insulin Human Lispro 0 unit 05/13/18 11:30 05/14/18 09:42 Humalog SUB-Q 3 unit ACHS JOHANA Administration Protocol Nicotine 21 mg 05/12/18 21:40 05/14/18 09:41 Habitrol TD 21 mg QDAY [facility] Administration Oxycodone/Acetaminophen 1 tab 05/12/18 15:46 05/13/18 09:05 Percocet 5/325 PO 1 tab Q6HR PRN Administration Pain Sodium Chloride 10 ml 05/12/18 22:00 05/14/18 10:06 Sodium Chloride Flush Syringe 10 Ml IV 10 ml BID JOHANA Administration Sodium Chloride 10 ml 05/12/18 15:44 Sodium Chloride Flush Syringe 10 Ml IV PRN PRN LINE FLUSH Thiamine HCl 100 mg 05/13/18 10:00 05/14/18 09:41 Vitamin B-1 PO 100 mg QDAY JOHANA Administration
--- NOTE | 2018-05-14 11:36 | Progress Note ---
Assessment and Plan 62 y/o male with diabetic ketoacidosis, hypernatremia and hypokalemia. 1. Stable pulm status. Will sign off. Subjective Date of service: 05/14/18 Interval history: Successful transfer out of unit. Being discharged today. Objective - Constitutional Vitals: Vital Signs - 12hr 05/14/18 05:19 Respiratory 20 Rate Blood Pressure 99/64 - Labs CBC & Chem 7: 05/14/18 05:19 05/14/18 05:19 Labs: Abnormal lab results 05/13/18 05/13/18 05/13/18 Range/Units 10:37 14:17 16:16 Hgb (11.8-15.2) gm/dl Hct (35.5-45.6) % MCV (84-94) fl MCH (28-32) pg RDW (13.2-15.2) % Whiteside % (Auto) (0.0-7.3) % Sodium 164 H* 146 H D 155 H D (137-145) mmol/L Potassium 3.5 L (3.6-5.0) mmol/L Chloride 110.4 H 108.0 H (98-107) mmol/L BUN 30 H 27 H (9-20) mg/dL Glucose 274 H 280 H (75-100) mg/dL Calcium 8.0 L 8.0 L (8.4-10.2) mg/dL Phosphorus (2.5-4.5) mg/dL 05/14/18 05/14/18 Range/Units 05:19 05:19 Hgb 10.1 L (11.8-15.2) gm/dl Hct 29.9 L (35.5-45.6) % MCV 81 L (84-94) fl MCH 27 L (28-32) pg RDW 18.1 H (13.2-15.2) % Whiteside % (Auto) 8.1 H (0.0-7.3) % Sodium (137-145) mmol/L Potassium 3.5 L (3.6-5.0) mmol/L Chloride (98-107) mmol/L BUN (9-20) mg/dL Glucose 187 H (75-100) mg/dL Calcium 7.9 L (8.4-10.2) mg/dL Phosphorus 1.00 L D (2.5-4.5) mg/dL Medications & Allergies - Medications Allergies/Adverse Reactions: Allergies No Known Allergies Allergy (Unverified 06/27/15 12:58) Home Medications: Home Medications Medication Instructions Recorded Confirmed Last Taken Type Famotidine [Pepcid] 20 mg PO BID #30 tablet 07/01/15 Unknown Rx Folic Acid 1 tab PO QDAY #30 tab 07/01/15 Unknown Rx Pot Phosphate/Na Phosphate 1 each PO BID #20 powd.pack 07/01/15 Unknown Rx [Phos-Nak] Thiamine [Vitamin B-1] 100 mg PO QDAY #30 tablet 07/01/15 Unknown Rx oxyCODONE /ACETAMINOPHEN [Percocet 1 tab PO Q6HR PRN #20 tablet 07/01/15 Unkno wn Rx 5/325 mg] Insulin Glargine [Lantus VIAL] 18 units SUB-Q QHS units 05/14/18 Unknown Rx Lispro Insulin [Humalog] 0 unit SUB-Q ACHS units 05/14/18 Unknown Rx Nicotine [Habitrol] 21 mg TD QDAY patch 05/14/18 Unknown Rx Active Medications: Generic Name Dose Route Start Last Admin Trade Name Freq PRN Reason Stop Dose Admin Albuterol 2.5 mg 05/12/18 15:44 Proventil IH Q3HRT PRN Shortness Of Breath Dextrose 0 ml 05/12/18 15:48 D50w (25gm) Syringe IV PRN PRN Hypoglycemia Enoxaparin Sodium 40 mg 05/13/18 22:00 05/13/18 21:55 Lovenox SUB-Q 40 mg QDAY@2200 JOHANA Administration Famotidine 20 mg 05/12/18 18:00 05/14/18 09:41 Pepcid PO 20 mg QDAY JOH[facility] Administration Folic Acid 1 mg 05/13/18 10:00 05/14/18 09:41 Folvite PO 1 mg DAILY J[facility] Administration Sodium Chloride 1,000 mls @ 0 mls/hr 05/13/18 12:00 Nacl 0.9% 1000 Ml IV 05/14/18 12:01 ONCE JOHANA As Directed Potassium Chloride 40 meq/ 1,020 mls @ 50 mls/hr 05/13/18 18:30 05/14/18 05:48 Dextrose IV 100 mls/hr DIRECT JOH[facility] Administration Potassium Phosphate 45 mmol/ 515 mls @ 85 mls/hr 05/14/18 10:00 05/14/18 10:22 Sodium Chloride IV 05/14/18 16:03 85 mls/hr ONCE ONE Administration Insulin Glargine 18 units 05/13/18 22:00 05/13/18 22:54 Lantus SUB-Q 18 units QHS JOHANA Administration Insulin Human Lispro 0 unit 05/13/18 11:30 05/14/18 09:42 Humalog SUB-Q 3 unit ACHS JOHANA Administration Protocol Nicotine 21 mg 05/12/18 21:40 05/14/18 09:41 Habitrol TD 21 mg QDAY JOH[facility] Administration Oxycodone/Acetaminophen 1 tab 05/12/18 15:46 05/13/18 09:05 Percocet 5/325 PO 1 tab Q6HR PRN Administration Pain Sodium Chloride 10 ml 05/12/18 22:00 05/14/18 10:06 Sodium Chloride Flush Syringe 10 Ml IV 10 ml BID JOHANA Administration Sodium Chloride 10 ml 05/12/18 15:44 Sodium Chloride Flush Syringe 10 Ml IV PRN PRN LINE FLUSH Thiamine HCl 100 mg 05/13/18 10:00 05/14/18 09:41 Vitamin B-1 PO 100 mg QDAY JOH[facility] Administration
[2018-05-14 16:07] VITALS: BP 127/83
== END 2018-05-14 18:06 | disposition home health service (06) | DRG 637 ==
LOC: ED 13:32 → CC1 15:45 → 3A 05-13 14:10
PROVIDERS: ADMIT Internal Medicine; ATTEND Internal Medicine
DX: E10.10 Type 1 diabetes mellitus with ketoacidosis without coma (principal); N17.0 Acute kidney failure with tubular necrosis; G93.40 Encephalopathy, unspecified; E87.0 Hyperosmolality and hypernatremia; I10 Essential (primary) hypertension; I25.2 Old myocardial infarction; Z96.641 Presence of right artificial hip joint; F17.210 Nicotine dependence, cigarettes, uncomplicated; E87.6 Hypokalemia; F10.20 Alcohol dependence, uncomplicated; Z83.3 Family history of diabetes mellitus; Z82.49 Family history of ischemic heart disease and other diseases of the circulatory system; Z91.14 Patient's other noncompliance with medication regimen; Z86.73 Personal history of transient ischemic attack (TIA), and cerebral infarction without residual deficits
CPT/HCPCS: 36415; 71045; 80048; 80076; 80320; 81001; 82010; 82803; 82962; 83735; 84100; 85025; 96361; 96374; 99291; 99406; G0378; G0480; J1650; J1815; J3480; J7030; J7040; J7070